=== PATIENT | male | born 1975 | race Hispanic/Latino ===

== ENCOUNTER 2019-06-27 14:35 | Outpatient (CLI) | payer OTHER ==
[~2019-06-27 14:35] MED LIST: ALPR1TAB61 PO; LISI20TA11 PO; NEXIUM40 M1 PO
== END 2019-06-27 19:53 | disposition home or self-care (01) ==
LOC: CT 14:35
DX: M54.16 Radiculopathy, lumbar region (principal)

== ENCOUNTER 2019-10-09 07:47 | Day surgery (SDC) | payer OTHER | END 2019-10-09 09:27 | disposition home or self-care (01) | LOC: OR 07:47 | PROC: 3E0R33Z Introduction of Anti-inflammatory into Spinal Canal, Percutaneous Approach (ICD-10-PCS; principal; 2019-10-09) | PROC: B01BYZZ Fluoroscopy of Spinal Cord using Other Contrast (ICD-10-PCS; 2019-10-09) | DX: M51.16 Intervertebral disc disorders with radiculopathy, lumbar region (principal) | CPT/HCPCS: J1020 ==

== ENCOUNTER 2019-10-18 13:22 | Outpatient (CLI) | payer OTHER | END 2019-10-18 19:11 | disposition home or self-care (01) | LOC: LABW 13:22 | DX: M19.90 Unspecified osteoarthritis, unspecified site (principal); M54.16 Radiculopathy, lumbar region | CPT/HCPCS: 36415; 85651; 86038; 86140; 86430 ==

== ENCOUNTER 2020-02-21 09:32 | Day surgery (SDC) | payer OTHER ==
[~2020-02-21] VITALS: Ht 30.5 cm; Wt 0.5 kg
== END 2020-02-21 12:04 | disposition home or self-care (01) ==
LOC: OR 09:32
PROC: 3E0R33Z Introduction of Anti-inflammatory into Spinal Canal, Percutaneous Approach (ICD-10-PCS; principal; 2020-02-21)
PROC: B01BYZZ Fluoroscopy of Spinal Cord using Other Contrast (ICD-10-PCS; 2020-02-21)
DX: M51.16 Intervertebral disc disorders with radiculopathy, lumbar region (principal)
CPT/HCPCS: J1020

== ENCOUNTER 2020-06-17 10:22 | Day surgery (SDC) | payer OTHER ==
[~2020-06-17] VITALS: Ht 30.5 cm; Wt 0.5 kg
== END 2020-06-17 11:43 | disposition home or self-care (01) ==
LOC: OR 10:22
PROC: 3E0R33Z Introduction of Anti-inflammatory into Spinal Canal, Percutaneous Approach (ICD-10-PCS; principal; 2020-06-17)
PROC: B01BYZZ Fluoroscopy of Spinal Cord using Other Contrast (ICD-10-PCS; 2020-06-17)
DX: M51.17 Intervertebral disc disorders with radiculopathy, lumbosacral region (principal)
CPT/HCPCS: J1020